=== PATIENT | male | born 1955 | race Asian ===

== ENCOUNTER 2016-11-11 05:28 | Inpatient (IN) | payer OTHER ==
[2016-11-10 11:57] VITALS: BMI 31.8
[~2016-11-11] VITALS: Ht 175.3 cm; Wt 96.2 kg
[2016-11-11] VITALS (30 sets, daily range): BP systolic 111–160; BP diastolic 54–84; PULSE 71–112; RESP 10–21; Ht 175.3 cm; Wt 96.2 kg
[2016-11-11] MEDS ORDERED: PROPOFOL 20 ML ONE ×2 (06:35→08:36)
[2016-11-11] MEDS ORDERED: GLYCOPYRROLATE 0.4 MG INJ ONE (06:35)
[2016-11-11] MEDS ORDERED: FENTAnyl 50 MCG/ML VIAL ONE ×3 (06:35→15:44)
[2016-11-11] MEDS ORDERED: NEOSTIGMINE 3 MG/3 ML SYRINGE ONE (06:35)
[2016-11-11] MEDS ORDERED: MIDAZOLAM 1 MG/ML 2 ML INJ ONE (06:35)
[2016-11-11] MEDS ORDERED: ROCURONIUM 50 MG INJ ONE ×2 (06:35→10:11)
[2016-11-11] MEDS ORDERED: LIDOCAINE 2% (SDV) 5 ML INJ ONE (06:35)
[2016-11-11] MEDS ORDERED: SUGAMMADEX SODIUM 200 MG/2 ML VIAL IV ONE (06:36)
[2016-11-11] MEDS ORDERED: DEXAMETHASONE 4 MG/ML 1 ML INJ ONE ×2 (06:36→08:16)
[2016-11-11] MEDS ORDERED: ONDANSETRON 4 MG INJ ONE (06:36)
[2016-11-11] MEDS ORDERED: GELATIN SIZE 100 SPONGE ONE (06:52)
[2016-11-11] MEDS ORDERED: BUPIVACAINE 0.25% (MPF) 30 ML INJ ONE (06:52)
[2016-11-11] MEDS ORDERED: CEFAZOLIN 1 GM INJ ONE ×2 (06:52→07:00)
[2016-11-11] MEDS ORDERED: LIDOCAINE 2%/EPI 30 ML INJ ONE (06:52)
[2016-11-11] MEDS ORDERED: THROMBIN 5000 UNIT VIAL ONE (06:53)
[2016-11-11] MEDS ORDERED: HEPARIN 1000 UNITS/ML 10 ML INJ ONE (06:53)
[2016-11-11] MEDS ORDERED: LABETALOL HCL 20MG INJ IV PRN (07:00)
[2016-11-11] MEDS ORDERED: DIPHENHYDRAMINE 50 MG INJ IV PRN ×2 (07:00→16:00)
[2016-11-11] MEDS ORDERED: ONDANSETRON 4 MG INJ IV PRN (07:00)
[2016-11-11] MEDS ORDERED: EPHEDrine SULFATE 50 MG/5 ML SYG IV PRN (07:00)
[2016-11-11] MEDS ORDERED: FENTAnyl 50 MCG/ML VIAL IV PRN ×2 (07:00)
[2016-11-11] MEDS ORDERED: MIDAZOLAM 1 MG/ML 2 ML INJ IV PRN (07:00)
[2016-11-11] MEDS ORDERED: hydrALAzine 20 MG INJ IV PRN (07:00)
[2016-11-11] MEDS ORDERED: LACTATED RINGER'S 1,000 ML IV SCH (07:00)
[2016-11-11] MEDS ORDERED: ATROPINE 1 MG/10 ML SYRINGE IV PRN (07:00)
[2016-11-11] MEDS ORDERED: BUPIVACAINE 0.5%/EPI (SDV) 10 ML INJ ONE (07:27)
--- NOTE | 2016-11-11 07:43 | HPN ---
Date/Time of Note Date/Time of Note DATE: 11/11/16 TIME: 07:42 Interval H&P Admission Note Pt. seen H&P reviewed: No system changes (continued gross diffuse left upper extremity weakness, numbness, clumsiness more than other extremties.) MYLENE MCGOVERN MD Nov 11, 2016 07:43
[2016-11-11] MEDS ORDERED: LIDOCAINE 1% (MPF) 30 ML INJ ONE (08:43)
[2016-11-11] MEDS ORDERED: POLYMYXIN/BACITRACIN 1L IRRIG ONE (09:53)
[2016-11-11] MEDS ORDERED: FUROSEMIDE 20 MG INJ ONE (14:47)
--- NOTE | 2016-11-11 15:12 | SIPON ---
Date/Time of Note Date/Time of Note DATE: 11/11/16 TIME: 15:10 Operative Report Preoperative Diagnosis C3-4, 4-5, 5-6, 6-7 stenosis Postoperative Diagnosis Same as above Operation/Procedure Performed C3-7 ACDF Surgeon: MYLENE MCGOVERN MD Anesthesia Type: general Estimated Blood Loss: 10 - 50 ml's Transfusion Required: no Specimen: none Grafts/Implants See op report Complications: no MYLENE MCGOVERN MD Nov 11, 2016 15:12
[2016-11-11] MEDS ORDERED: BISACODYL 10 MG SUPP PR PRN (16:00)
[2016-11-11] MEDS ORDERED: NALOXONE (0.4 MG/ML) INJ IV PRN (16:00)
[2016-11-11] MEDS ORDERED: HYDROmorphONE 1 MG/ML SYG IV PRN (16:30)
[2016-11-11] MEDS: CEFAZOLIN 1 GM/50 ML (PMX) 50 ML IVPB SCH (16:34)
--- NOTE | 2016-11-11 16:40 | RADRPT ---
PROCEDURE: Intraoperative imaging of the cervical spine with fluoroscopy. CLINICAL INDICATION: Neck pain. Intraoperative. TECHNIQUE: 6 images of the cervical spine were obtained in the operating room with an image intens ifier. No radiologist was in attendance. Fluoroscopy time is 85 seconds. COMPARISON: No prior study is available for comparison. FINDINGS: Surgical instruments are noted overlying the cervical spine. Images demonstrate anterior fusion wit h plate and screws at C3 - C4 - C5 - C6 - C7. Intervertebral cages are also present at C3-4, C4-5, C5-6, and C6-7. IMPRESSION: 1. Intraoperative imaging of the cervical spine. RPTAT: QQ .Charles Mares MD, MD Date Time Electronically viewed and signed by .Charles Mares MD, on 11/11/2016 16:40 .R/
[2016-11-11] MEDS: ACETAMINOPHEN 325 MG TAB PO SCH ×2 (19:19→21:20)
[2016-11-11] MEDS: traMADol 50 MG TAB PO SCH ×2 (19:19→21:21)
[2016-11-11] MEDS: 1/2 NS + KCL 20 MEQ 1,000 ML IV SCH (21:13)
[2016-11-11] MEDS: CYCLOBENZAPRINE 10 MG TAB PO SCH (21:18)
[2016-11-11] MEDS: DOCUSATE SODIUM 100 MG CAP PO SCH (21:19)
[2016-11-11] MEDS: ONDANSETRON 4 MG INJ IV PRN (21:21)
--- NOTE | 2016-11-11 22:00 | OPR ---
Date/Time of Note Date/Time of Note DATE: 11/11/16 TIME: 22:00 Operative Report Free Text/Dictation Date of operation: 11/11/2016 Operating surgeon: Mylene Mcgovern M.D. Preoperative diagnosis: 1. C3-C7 central and foraminal stenosis 2. Cervical radiculopathy and myelopathy Postoperative diagnosis: Same as above Indication for procedure: This is a 60-year-old male with history of progressively increasing left upper extremity weakness and clumsiness and to a lesser degree clumsiness of the contralateral upper extremity and bilateral lower extremities. The patient was found to have severe cervical stenosis from C3-C7 of varying degrees causing cord compression and neural foraminal stenosis. The patient has some neck pain but this seems to bother the patient much less then his progressive left upper extremity weakness. The risks and benefits of the above operation where again explained in great detail to the patient and his was present at bedside in the preoperative area and they both understood the discussion and wish to proceed with the surgery this morning. Operation performed: 1. C3-C4, C4-C5, C5-C6, C6-C7 anterior cervical discectomy and spinal decompression 2. Placement of intervertebral cages at C3-C4, C4-C5, C5-C6, and C6-C7 levels ( lordotic plasma coated peek cages of 7 mm at C3-C4, C4-C5 and C6-C7 and 8 mm height at C5-C6) 3. C3-C7 interbody arthrodesis 4. C3-C7 anterior instrumentation (Alphatec anterior plate with 16 mm variable screws) 5. Intraoperative microscope with microdissection 6. Intraoperative fluoroscopy with professional interpretation 7. Intraoperative neurophysiologic monitoring including SSEP, MEP, EMG 8. Morcellized local autologous bone graft harvest 9. Use of morcellized allograft Description of operative procedure: The patient was brought to the operating room and placed supine on the operating table. After general anesthesia was obtained, a roll was placed across the patient's shoulders. His head and neck was kept in a neutral position at all times. His arms were then tucked by his side. All pressure points were noted and padded appropriately. His shoulders were then taped down. A carotid like incision was marked along the medial border of the right sternocleidomastoid muscle over the anterior cervical spine from approximately C3-C7. After the skin was prepped and draped under standard sterile fashion, local anesthetics were infiltrated into the marked incision. The skin was incised down to the level of the platysma. The platysma muscle was then sharply opened up. The plane underneath the platysma muscle was undermined superiorly and inferiorly to further loosen up the skin and the platysma muscle. Using sharp and blunt dissection the plane medial to the right sternocleidomastoid muscle was further developed down to the precervical fascia. Then spinal needle was used to confirm the C3-C4 disc space under direct lateral fluoroscopy. The medial borders of the longus Dahlia muscle was denuded off the vertebral bodies of C3 and C4. Self-retaining retractors were placed inside. 14 mm [place] pins were placed at the C3 and C4 vertebral bodies under direct lateral fluoroscopy. [place] pins were then distracted further opening up the C3-C4 disc space. The operating microscope was brought into the field. The annulus was then cut open. Full anterior cervical discectomy was performed. The severely thickened posterior longitudinal ligament was then dissected and cut. The dura was exposed. The spinal cord was fully decompressed. The decompression was then carried out further laterally from one uncovertebral joint to the other and the neural foramen was completely decompressed. Microsect curettes were then used to remove any other pieces of disc osteophyte fragments that were hidden underneath the vertebral bodies superiorly and inferiorly. The endplates were then decorticated. Using various size trials, we then decided to use a 7 mm height lordotic plasma coated peek cage. The cage was packed with the locally harvested morcellized autologous bone graft when the anterior disc osteophyte complexes were removed. This was combined with allograft. The cage was then inserted under direct lateral fluoroscopy and countersunk allowing the disc space to further open up and distract. Same set of procedures were done at C4-C5, C5-C6 and C6-C7 levels serially. The most severely degenerated, collapsed disc space with accompanied cord compression and neural foraminal stenosis were at C4-C5 and C6- C7 levels followed by C5-C6 level. At these last 3 levels, we encountered calcified herniated disc complexes that were indenting and compressing specially the left side of the spinal cord. By the end the procedure the spinal cord and the neural foramina were all completely decompressed. The same set up disc prep work and decortication of the endplates ever done for C3-C4 were also done at these last 3 disc space levels. 7 mm height spacers were used at C4-C5 and C6-C7 levels an 8 mm height spacer was used at C5-C6 level. We were able to greatly restore the lost disc heights at these levels. Next a properly sized anterior Alphatec plate was measured and made lordotic. Using the double barrel guide we then overdrilled the vertebral bodies bilaterally to a depth greater than 16 mm to allow the screws to lag onto the plates bringing the cervical spine to the lordotic ashut[place]. 16 mm variable screws were then inserted under direct lateral fluoroscopy and medialized at each of the levels. The screws were then tightened starting from C3 and working our way all the way down to C7. We were able to lag the screws onto the plates thereby restoring the patient's cervical lordosis from C3-C7 under direct lateral fluoroscopy. The locking mechanism over the plates was engaged by every screw. The final AP and lateral x-ray showed good positioning of the hardware. The wound was copiously irrigated with antibiotic solution and complete hemostasis was obtained. A medium Hemovac drain was placed in the pretracheal space and the other end of it was brought out of the skin away from the incision site. The platysmal layer was then reapproximated with interrupted sutures. The dermal layer was reapproximated with interrupted sutures. The skin was reapproximated with Dermabond. The Hemovac drain was secured to the skin at its exit site with a suture and connected to a Hemovac bag and activated. A sterile dressing was placed over the anterior cervical incision. A rigid cervical collar was placed around the patient's neck. The patient was then placed on the hospital bed, awoken op and extubated and transported to the recovery room in stable condition. In the recovery room the patient was able to move his bilateral upper and lower extremities well. The neurophysiologic monitoring signals were stable throughout the procedure. Estimated blood loss: 50 cc Blood administered: None Packs/drains: Medium Hemovac drain Type of anesthesia: Gen. Specimen removed: None Wound classification: Clean Incision: Right anterior cervical Skin closure: Dermabond Patient's condition: Stable Prognosis: Good Surgeon: MYLENE MCGOVERN MD Anesthesia Type: general Estimated Blood Loss: 10 - 50 ml's Transfusion Required: no Complications: no MYLENE MCGOVERN MD Nov 11, 2016 22:00
[2016-11-12] VITALS (10 sets, daily range): BP systolic 131–161; BP diastolic 74–119; PULSE 77–102; RESP 16–19
[2016-11-12] MEDS: CEFAZOLIN 1 GM/50 ML (PMX) 50 ML IVPB SCH ×2 (00:36→09:12)
[2016-11-12] MEDS: 1/2 NS + KCL 20 MEQ 1,000 ML IV SCH ×2 (01:32→06:04)
[2016-11-12] MEDS: ACETAMINOPHEN 325 MG TAB PO SCH ×3 (03:19→19:32)
[2016-11-12] MEDS: ONDANSETRON 4 MG INJ IV PRN ×3 (03:21→19:33)
[2016-11-12] MEDS: traMADol 50 MG TAB PO SCH ×3 (03:46→19:33)
[2016-11-12] MEDS ORDERED: PANTOPRAZOLE 40 MG INJ IV SCH (06:00)
[2016-11-12] MEDS: CYCLOBENZAPRINE 10 MG TAB PO SCH ×2 (09:08→13:07)
[2016-11-12] MEDS: DOCUSATE SODIUM 100 MG CAP PO SCH (09:08)
--- NOTE | 2016-11-12 11:32 | PN ---
Date/Time of Note Date/Time of Note DATE: 11/12/16 TIME: 11:17 Assessment/Plan VTE Prophylaxis VTE Prophylaxis Intervention: SCD's Lines/Catheters IV Catheter Type (from Nrsg): Peripheral IV Urinary Cath still in place: No Assessment/Plan Assessment/Plan 60-year-old male with: 1. Cervical stenosis, C3-4, C4-5, C5-6, C6-7: Postoperative day #1 post ACDF C3 -7 Dr. Ibrahim Tolerating clear liquids this morning Hard neck collar in place Pain control with tramadol, also getting Flexeril. Drain still in place. Ambulating in the hallway already with mild dizziness. 2. Previous history of stage I colon cancer, status post right hemicolectomy years ago at age 30. Stable Prophylaxis: SCDs for DVT prophylaxis, Protonix for GI prophylaxis Disposition: Per neurosurgery. Subjective 24 Hr Interval Summary Free Text/Dictation Patient remained stable on telemetry, respiratory status stable, started on clears this morning he is having some dysphagia but able to tolerate. Vital signs stable, afebrile. He already ambulated around the hallway. Drain in place in the cervical area still, also hard neck collar in place. Exam/Review of Systems Vital Signs Vitals Vital Signs Date Time Temp Pulse Resp B/P Pulse Ox O2 Delivery O2 Flow Rate FiO2 11/12/16 08:32 77 11/12/16 07:53 98.4 16 132/76 100 11/11/16 20:05 Nasal Cannula 2.0 Intake and Output 11/11/16 11/11/16 11/12/16 14:59 22:59 06:59 Intake Total 4000 ml 1350 ml Output Total 655 ml 1450 ml Balance 3345 ml -100 ml Exam Constitutional: alert, oriented, other (neck collar in place ), well developed Neck: other (collar and drain in place ) Respiratory: clear to auscultation, normal air movement Cardiovascular: nl pulses, regular rate and rhythm Gastrointestinal: non-tender, soft Musculoskeletal: nl extremities to inspection Extremities: normal pulses, other (No edema, clubbing or cyanosis) Neurological: ROUND KILN DRAWER II-XII intact, nl mental status, nl speech, other (Improving strength) Medications Medications Current Medications Potassium Chloride/Sodium Chloride (1/2 NS + KCl 20 Meq) 1,000 ml @ 100 mls/hr Q10H IV Last administered on 11/12/16 06:04; Admin Dose 100 MLS/HR; Start at 15:32 Ondansetron HCl (Zofran Inj) 4 mg Q6H PRN IV NAUSEA AND/OR VOMITING Last administered on 11/12/16 09:15; Admin Dose 4 MG; Start 11/11/16 at 16:00 Bisacodyl (Dulcolax Supp) 10 mg DAILY PRN [place] CONSTIPATION; Start 11/11/16 at 16 :00 Docusate Sodium (Colace) 100 mg BID PO Last administered on 11/12/16 09:08; Admin Dose 100 MG; Start 11/11/16 at 21:00 Pantoprazole (Protonix Iv) 40 mg DAILY@06 IV Last administered on 11/12/16 06: 04; Admin Dose 40 MG; Start 11/12/16 at 06:00 Acetaminophen (Tylenol Tab) 650 mg Q6H PO Last administered on 11/12/16 09:15 ; Admin Dose 650 MG; Start 11/11/16 at 16:00 Cyclobenzaprine HCl (Flexeril) 10 mg TID PO Last administered on 11/12/16 09: 08; Admin Dose 10 MG; Start 11/11/16 at 21:00 Diphenhydramine HCl (Benadryl) 25 mg Q6H PRN IV ITCHING; Start 11/11/16 at 16: 00 Naloxone HCl (Narcan) 0.2 mg Q2M PRN IV RR 8 BREATHS/MIN OR LESS; Start at 16:00 Tramadol HCl (Ultram) 50 mg Q6H PO Last administered on 11/12/16 09:12; Admin Dose 50 MG; Start 11/11/16 at 16:30 Hydromorphone HCl (Dilaudid) 0.4 mg Q1HWA PRN IV PAIN; Start 11/11/16 at 16:30 ANGELICA FRANCIS Nov 12, 2016 11:29
[2016-11-12 13:54] LABS: CALCIUM 8.9 mg/dl (8.4-10.2); CREATININE 0.71 mg/dl (0.61-1.24)
--- NOTE | 2016-11-12 16:43 | PDOCDIS ---
Discharge Instructions CONDITION Patient Condition: Stable HOME CARE INSTRUCTIONS: Diet Instructions: Regular ACTIVITY: Activity Restrictions: Slowly Increase Activity FOLLOW UP/APPOINTMENTS Follow-up Plan Follow up with PCP within 1 week Follow up with Dr Ibrahim within 1 to 2 weeks ANGELICA FRANCIS Nov 12, 2016 16:43
[2016-11-12] MEDS ORDERED: CYCL-319 PO (16:47)
[2016-11-12] MEDS ORDERED: DOCU-216 PO (16:47)
[2016-11-12] MEDS ORDERED: TRAM50TA2 PO (16:47)
[2016-11-13] MEDS ORDERED: PANTOPRAZOLE (EC) 40 MG TAB PO SCH (06:00)
--- NOTE | 2016-11-14 15:50 | PN ---
Date/Time of Note Date/Time of Note DATE: 11/12/16 TIME: 13:00 Subjective 24 Hr Interval Summary Free Text/Dictation Date of progress note: 11/12/2016 The patient is postop day 1 status post C3-C7 anterior cervical discectomy and instrumented fusion. The patient is seen at bedside next to his and daughter. He is doing quite well. He is awake alert and oriented 4. He has already been walking around on his own without difficulty. He is already tolerated oral intake. He is voiding spontaneously. He does not have any hoarseness. He is only requiring Tylenol for pain control. His anterior cervical Hemovac drain has put out about 25 cc. The drain has not been removed. The anterior cervical incision is clean dry and intact and the dressing has been changed. Motor strength in the right upper and bilateral lower extremities is 5 out of 5. Motor strength in the left upper extremity is at least 4 out of 5 proximally and distally. Sensation to light touch seems to be grossly normal bilateral upper and lower extremities. The patient would like to go home today. He is to wear his rigid cervical collar when he is up and ambulating. He may shower tomorrow. He can remove the cervical dressing in 3-4 days. He is to follow up with my clinic in 3 weeks. Activities as tolerated but I have instructed the patient to not lift his upper extremities above his shoulder with more than 15-20 pounds of weight. The patient is to avoid the use of nonsteroidal anti-inflammatory drugs for the next 4 months as these medications can interfere with fusion. I have also communicated this information to Dr. Gleason. MYLENE MCGOVERN MD Nov 14, 2016 15:49
== END 2016-11-12 19:55 | disposition home or self-care (01) | DRG 473 ==
LOC: REC 05:28 → EDSTATUS 09:00 → MS4 18:17
PROVIDERS: ADMIT Neurological Surgery; ATTEND Neurological Surgery
PROC: 0RG20K0 Fusion of 2 or more Cervical Vertebral Joints with Nonautologous Tissue Substitute, Anterior Approach, Anterior Column, Open Approach (ICD-10-PCS; 2016-11-11)
PROC: 0RT30ZZ Resection of Cervical Vertebral Disc, Open Approach (ICD-10-PCS; 2016-11-11)
PROC: 0RG20A0 Fusion of 2 or more Cervical Vertebral Joints with Interbody Fusion Device, Anterior Approach, Anterior Column, Open Approach (ICD-10-PCS; principal; 2016-11-11 07:30)
DX: M50.11 Cervical disc disorder with radiculopathy, high cervical region (principal); M48.02 Spinal stenosis, cervical region
CPT/HCPCS: 72052; 80048; 83735; 86850; 86900; 86901; 86920; 87086; 97161; 97530; J1940; C9113; J0690; J1100; J1644; J2250; J2405; J2710; J3010; J3480